=== PATIENT | female | born 1975 | race Caucasian/White ===

== ENCOUNTER → 2017-03-11 | Outpatient (CLI) | payer BC ==
[~2017-03-11] MED LIST: NO HOME MEDICATIONS
== END ==
LOC: COL.RAD 17:22
DX: R10.31 Right lower quadrant pain (principal); K92.1 Melena; Z90.49 Acquired absence of other specified parts of digestive tract; Z90.710 Acquired absence of both cervix and uterus
CPT/HCPCS: Q9967

== ENCOUNTER → 2018-11-20 | Outpatient (CLI) | payer OTHER | LOC: COL.RAD 13:51 | DX: K76.9 Liver disease, unspecified (principal); K86.89 Other specified diseases of pancreas; R61 Generalized hyperhidrosis; R19.09 Other intra-abdominal and pelvic swelling, mass and lump; R59.0 Localized enlarged lymph nodes; Z90.49 Acquired absence of other specified parts of digestive tract | CPT/HCPCS: Q9967 ==